=== PATIENT | male | born 1995 | race African-American/Black ===

== ENCOUNTER 2021-06-05 09:53 | Emergency (ER) | payer OTHER, SELFPAY ==
[2021-06-05 10:05] VITALS: BP 130/82; PULSE 71; RESP 20; TEMP 36.2; O2SAT 99
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
[2021-06-05 10:41] VITALS: BP 130/82; PULSE 71; RESP 20; TEMP 36.2; O2SAT 99
== END 2021-06-05 10:43 | disposition home or self-care (01) ==
PROVIDERS: Emergency Provider Emergency Medicine
DX: B00.9 Herpesviral infection, unspecified (principal)
CPT/HCPCS: 99283